=== PATIENT | male | born 1990 | race Caucasian/White ===

== ENCOUNTER → 2022-03-08 13:05 | Outpatient (BNVA) | payer MEDICAID, SELFPAY | PROVIDERS: Visit Provider Physician Assistant Surgical | DX: Z13.89 Encounter for screening for other disorder (principal) ==

== ENCOUNTER → 2022-03-23 10:30 | Outpatient (BNVA) | payer MEDICAID, SELFPAY | PROVIDERS: Visit Provider Physician Assistant | DX: Z01.818 Encounter for other preprocedural examination (principal); R03.0 Elevated blood-pressure reading, without diagnosis of hypertension; E66.01 Morbid (severe) obesity due to excess calories; F17.210 Nicotine dependence, cigarettes, uncomplicated; Z68.42 Body mass index [BMI] 45.0-49.9, adult | CPT/HCPCS: 99202 ==

== ENCOUNTER → 2022-04-04 10:51 | Outpatient (REF) | payer MEDICAID, SELFPAY ==
--- NOTE | ~2022-04-04 | XR_ITS ---
EXAMINATION: XR CHEST CLINICAL INFORMATION: Preprocedural examination. COMPARISON: None TECHNIQUE: 2 views of the chest were obtained. FINDINGS: The lungs are well expanded. There is no focal consolidation, edema, or effusion. No pneumothorax. The cardiomediastinal silhouette is within normal limits. No acute osseous abnormality. XR/XR chest 2V IMPRESSION: Clear lungs.
--- NOTE | 2022-04-04 11:00 | ECG_ITS ---
Test Reason : pre-op Blood Pressure : / mmHG Vent. Rate : 083 BPM Atrial Rate : 083 BPM P-R Int : 196 ms QRS Dur : 090 ms QT Int : 380 ms P-R-T Axes : 050 028 039 degrees QTc Int : 446 ms Normal sinus rhythm Normal ECG No previous ECGs available Referred By: Sandra Evangelista Electronically Signed By:ELIS BARBER
[2022-04-04 11:28] LABS: MANUAL DIFF FLAG NO
[2022-04-04 11:59] LABS: Basophils Absolute Auto 0.1 X10*3/uL (0.0-0.2); Basophils Percent Auto 0.6 % (0-2); Eosinophils Absolute Auto 0.3 X10*3/uL (0.0-0.4); Eosinophils Percent Auto 2.8 % (0-4); Hematocrit 44.4 % (42.0-52.0); Hemoglobin 14.4 g/dl (14.0-18.0); Imm Gran Abs Auto 0.05 X10*3/uL (0.00-0.03); Imm Gran Pct Auto 0.5 % (0.0-0.4); Lymphocytes Absolute Auto 2.8 X10*3/uL (1.2-4.9); Lymphocytes Percent Auto 26.1 % (20-40); Mean Corpuscular HGB Conc 32.4 g/dl (31.0-36.0); Mean Corpuscular Hemoglobin 23.1 pg (27.0-33.0); Mean Corpuscular Volume 71.3 fL (80.0-98.0); Mean Platelet Volume 8.7 fL (9.4-12.4); Monocytes Absolute Auto 0.6 X10*3/uL (0.1-1.2); Monocytes Percent Auto 5.2 % (2-11); Neutrophils Absolute Auto 6.8 x10*3/uL (2.0-8.3); Neutrophils Percent Auto 64.8 % (45-73); Platelet Count 269 X10*3/uL (160-400); Red Blood Count 6.23 X10*6/uL (4.60-5.80); White Blood Count 10.5 X10*3/uL (4.8-10.8)
[2022-04-04 12:15] LABS: Estimated Average Glucose 108 mg/dL; Hemoglobin A1c % 5.4 %
[2022-04-04 12:56] LABS: Alanine Aminotransferase 34 U/L (0-40); Albumin Level 4.6 g/dL (3.5-5.0); Alkaline Phosphatase 97 U/L (39-117); Anion Gap 12 (12-20); Aspartate Amino Transferase 18 U/L (5-37); Bilirubin Total 0.8 mg/dL (0.0-1.0); Blood Urea Nitrogen 12 mg/dL (9-16); C Reactive Protein 1.17 mg/dL (< or = 0.50); Calcium 9.6 mg/dL (8.4-10.2); Carbon Dioxide 26 mmol/L (22-29); Chloride 106 mmol/L (96-108); Cholesterol 209 mg/dL; Estimated Glomerular Filt Rate > 60; Glucose Random 84 mg/dL (60-115); HDL Cholesterol 24 mg/dL; Iron 59 mcg/dL (45-160); LDL Cholesterol Calculated 127 mg/dl; Percent Iron Saturation 20 % (15-50); Potassium 4.1 mmol/L (3.3-5.1); Sodium 140 mmol/L (135-145); Total Iron Binding Capacity 292 mcg/dL (228-428); Total Protein 7.5 g/dL (6.5-8.0); Triglycerides 291 mg/dL; Unsaturated Iron Binding 233 ug/dL
[2022-04-04 13:13] LABS: Ferritin 146 ng/mL (20-250); Folate 13.5 ng/mL (> or = 4.0); Insulin 20 uU/mL (2-29); TSH reflex Free T4 1.49 uIU/mL (0.32-4.0); Vitamin B12 424 pg/mL (200-900); Vitamin D 25-OH Total 24.4 ng/mL (>30)
[2022-04-06 13:19] LABS: Calcium (PTHI) 9.8 mg/dL (8.6-10.3); PTHI 43 pg/mL (16-77)
[2022-04-09 15:09] LABS: Vitamin B1 10 nmol/L (8-30)
[2022-04-10 00:43] LABS: Zinc 78 mcg/dL (60-130)
[2022-04-10 05:48] LABS: Vitamin A 93 mcg/dL (38-98)
== END ==
LOC: HO.CARD 10:51
PROVIDERS: Visit Provider Physician Assistant
DX: Z01.818 Encounter for other preprocedural examination (principal); E66.01 Morbid (severe) obesity due to excess calories; R03.0 Elevated blood-pressure reading, without diagnosis of hypertension; A04.8 Other specified bacterial intestinal infections
CPT/HCPCS: 36415; 71046; 80053; 80061; 82306; 82607; 82728; 82746; 83013; 83036; 83525; 83540; 83970; 84425; 84443; 84590; 84630; 85025; 86140; 93005; 99211

== ENCOUNTER 2022-04-04 18:38 | Outpatient (REF) | payer MEDICAID, SELFPAY ==
[2022-04-07 10:47] LABS: H Pylori Breath Test Negative (Negative)
== END 2022-04-04 18:39 | disposition home or self-care (01) ==
LOC: HO.LNP 18:38
PROVIDERS: Visit Provider Physician Assistant
DX: Z01.818 Encounter for other preprocedural examination (principal); E66.01 Morbid (severe) obesity due to excess calories; R03.0 Elevated blood-pressure reading, without diagnosis of hypertension
CPT/HCPCS: 83013

== ENCOUNTER → 2022-04-13 11:00 | Outpatient (BNVA) | payer MEDICAID, SELFPAY | PROVIDERS: PCP Physician Assistant Medical; Visit Provider Physician Assistant | DX: Z13.89 Encounter for screening for other disorder (principal) ==

== ENCOUNTER → 2022-05-04 11:00 | Outpatient (BNVA) | payer MEDICAID, SELFPAY | PROVIDERS: PCP Physician Assistant Medical; Visit Provider Dietitian, Registered | DX: Z01.818 Encounter for other preprocedural examination (principal); R03.0 Elevated blood-pressure reading, without diagnosis of hypertension; E66.01 Morbid (severe) obesity due to excess calories; Z68.42 Body mass index [BMI] 45.0-49.9, adult | CPT/HCPCS: 97802 ==

== ENCOUNTER → 2022-05-07 13:15 | Outpatient (BNVA) | payer OTHER, MEDICAID, SELFPAY | PROVIDERS: PCP Physician Assistant Medical; Visit Provider Counselor Mental Health ==

== ENCOUNTER 2022-05-09 08:46 | Outpatient (REF) | payer MEDICAID, SELFPAY ==
--- NOTE | ~2022-05-09 | US_ITS ---
EXAMINATION: US COMPLETE ABDOMEN WITH LIVER ELASTOGRAPHY CLINICAL INFORMATION: Obesity COMPARISON: None available. TECHNIQUE: Real-time imaging of the abdominal viscera. Noninvasive ultrasound liver fibrosis assessment is performed using Griselda ElastPQ point quantification shear wave elastography (2D-SWE) with a C5-2 MHz transducer. Multiple elastography samples are obtained. FINDINGS: PANCREAS: Normal. The visualized pancreatic head and body are normal in appearance. The remainder of the pancreas is obscured from visualization by the overlying bowel gas. ABDOMINAL AORTA: The proximal, middle, and distal aortic segments are normal in caliber. INFERIOR VENA CAVA: Visualized portions are normal. LIVER: The liver demonstrates enlarged in size, normal contour and increased echogenicity. No focal lesion or intrahepatic biliary duct dilatation. The right lobe measures 20.7 cm in length. The left lobe measures 15.6 cm in length. Portal flow is hepatopedal Shear wave liver elastography median stiffness is 1.64 m/s (reference: normal median stiffness is 1.3 m/s or less). IQR/median stiffness to assess sampling precision is 0.10 (reference: good quality data set is IQR/median stiffness of 0.15 or less). GALLBLADDER: There is a phrygian cap visualized.. The gallbladder is physiologically distended without evidence of stones, sludge, polyps, wall thickening or pericholecystic fluid. COMMON BILE DUCT: Normal in caliber measuring 0.36 cm in diameter. RIGHT KIDNEY: Normal. No hydronephrosis. No renal calculi or focal parenchymal lesions. The kidney measures 13.2 cm in maximum dimension. LEFT KIDNEY: Normal. No hydronephrosis. No renal calculi or focal parenchymal lesions. The kidney measures 13.0 cm in maximum dimension. SPLEEN: Normal. The spleen measures 14.6 cm in maximum dimension. FREE FLUID: None. US/US abdomen comp w elastography IMPRESSION: 1. Hepatic steatosis with hepatomegaly. No focal lesion. Rest of the abdominal ultrasound is unremarkable. 2. Liver elastography: Median liver stiffness measures 1.64m/s corresponds to cACLD (ruled out ), REFERENCE: Society of Radiologists in Ultrasound Liver Stiffness Thresholds (2019): LIVER STIFFNESS THRESHOLDS: *Liver Stiffness equal or less than 1.3 m/s: High probability of being normal. *Liver Stiffness less than 1.7 m/s: In the absence of other known clinical signs, rules out compensated advanced chronic liver disease. *Liver Stiffness 1.7-2.1 m/s: Suggestive of compensated advanced chronic liver disease but need further test for confirmation. *Liver Stiffness over 2.1 m/s: Rules in compensated advanced chronic liver disease. *Liver Stiffness over 2.4 m/s: Suggestive of clinically significant portal hypertension. QUALITY OF DATA SET: *IQR/Median value equal or less than 0.15 implies a quality data set. *IQR/Median value over 0.15 implies a poor quality data set. SIGNIFICANT CHANGE FROM PRIOR EXAM: Significant change if liver stiffness measurement is 10% or greater from prior exam. OTHER CONSIDERATIONS: The stage of liver fibrosis may be overestimated in the setting of acute hepatitis, liver inflammation, elevated liver function tests, hepatic vascular congestion, obstructive cholestasis, non-fasting state, and infiltrative diseases such as amyloidosis and lymphoma. In some patients with NAFLD, the liver stiffness thresholds for compensated advanced chronic liver disease may be lower. In causes other than viral hepatitis and NAFLD, liver stiffness thresholds are not well established.
--- NOTE | ~2022-05-09 | FL_ITS ---
EXAMINATION: FL UPPER GI SERIES CLINICAL INFORMATION: Bariatric service evaluation. Z01.818 - Encounter for other preprocedural examination COMPARISON: None TECHNIQUE: Upper GI series is performed using fluoroscopic evaluation in addition to multiple fluoroscopic spot views. The patient is imaged both upright and prone and using both thick and thin barium sulfate along with effervescent granules. Fluoroscopy time: 1.3 minutes DAP: 34.07 Gycm2 Fluoroscopic spot images: 17 FINDINGS: There is normal esophageal motility. There is no obstruction, stricture, ulceration, or hernia. There is gastroesophageal reflux during the water siphon test to the mid thoracic esophagus. The stomach shows no thickened folds or ulcer crater or outlet obstruction. The duodenal bulb is pliable and without ulcer crater or scarring. The post bulbar duodenum the jejunal mucosal pattern are unremarkable. There is a tiny duodenal diverticulum medial descending duodenum. FL/FL upper GI w air IMPRESSION: -Gastroesophageal reflux during water siphon test to mid thoracic esophagus. -No esophageal ulceration or stricture. No hiatal hernia. -Stomach unremarkable. Incidental tiny duodenal diverticulum.
== END 2022-05-09 08:47 | disposition home or self-care (01) ==
LOC: HO.US 08:46
PROVIDERS: PCP Physician Assistant Medical; Visit Provider Physician Assistant
DX: Z01.818 Encounter for other preprocedural examination (principal); E66.01 Morbid (severe) obesity due to excess calories; R03.0 Elevated blood-pressure reading, without diagnosis of hypertension
CPT/HCPCS: 74246; 76705; 76981

== ENCOUNTER → 2022-05-29 10:30 | Outpatient (BNVA) | payer OTHER, MEDICAID, SELFPAY | PROVIDERS: PCP Physician Assistant Medical; Visit Provider Counselor Mental Health | DX: F43.23 Adjustment disorder with mixed anxiety and depressed mood (principal) ==

== ENCOUNTER → 2022-06-07 16:59 | Outpatient (BNVA) | payer MEDICAID, SELFPAY | PROVIDERS: PCP Physician Assistant Medical; Visit Provider Physician Assistant | DX: E66.01 Morbid (severe) obesity due to excess calories (principal); K76.0 Fatty (change of) liver, not elsewhere classified; R16.0 Hepatomegaly, not elsewhere classified ==

== ENCOUNTER → 2022-06-12 10:30 | Outpatient (BNVA) | payer OTHER, MEDICAID, SELFPAY | PROVIDERS: PCP Physician Assistant Medical; Visit Provider Counselor Mental Health | DX: F43.23 Adjustment disorder with mixed anxiety and depressed mood (principal) ==

== ENCOUNTER → 2022-06-18 13:17 | Outpatient (BNVA) | payer OTHER, SELFPAY | PROVIDERS: PCP Physician Assistant Medical; Visit Provider Dietitian, Registered | DX: E66.01 Morbid (severe) obesity due to excess calories (principal); Z68.42 Body mass index [BMI] 45.0-49.9, adult; Z71.3 Dietary counseling and surveillance | CPT/HCPCS: 97803 ==

== ENCOUNTER → 2022-07-03 10:00 | Outpatient (BNVA) | payer OTHER, MEDICAID, SELFPAY | PROVIDERS: PCP Physician Assistant Medical; Visit Provider Counselor Mental Health | DX: F43.23 Adjustment disorder with mixed anxiety and depressed mood (principal) ==

== ENCOUNTER → 2022-07-03 10:00 | Outpatient (BNVA) | payer OTHER, MEDICAID, SELFPAY | PROVIDERS: PCP Physician Assistant Medical; Visit Provider Counselor Mental Health | DX: F43.23 Adjustment disorder with mixed anxiety and depressed mood (principal) ==

== ENCOUNTER → 2022-07-05 08:30 | Outpatient (BNVA) | payer OTHER, MEDICAID, SELFPAY | PROVIDERS: PCP Physician Assistant Medical; Visit Provider Physician Assistant ==

== ENCOUNTER 2023-06-03 08:42 | Outpatient (AMB) | payer OTHER, SELFPAY ==
[2023-06-03 22:55] VITALS: BMI 50.6
--- NOTE | 2023-06-03 22:55 | MHC.OFFVISWM ---
VS Expanded 06/03/23 22:55 Height 6 ft Weight 373 lb BMI 50.6 Body Fat % 58.2 Body Fat Mass 217 Fat Free Mass 156 Visceral Fat Rating 30 Body Water % 330.2 Body Water Mass 112.6 Basal Metabolic Rate/Score 1,907 Intake Visit Reasons: TV Re-Est SWL Allergies acetaminophen [From Vicodin] Adverse Reaction (Intermediate, Verified 06/03/23 22:57) Rash hydrocodone [From Vicodin] Adverse Reaction (Intermediate, Verified 03/23/22 10:39) Rash Medication List - Last Reconciled 06/03/23 by Milton Elaine MD cholecalciferol (vitamin D3) 25 mcg PO DAILY multivitamin 1 tab PO DAILY HPI HPI TV Re-Est SWL: Details: Start time: 3.30pm, End time: 3.50pm ?I spent 15 minutes speaking with the patient on the phone plus an additional 5 minutes reviewing and updating records for a total of 20 minutes HPI Comments Details: Patient is re-establishing care Had to discontinue the program last year because his passed Has lost 5lbs already with our nutritional and exercise plan [facility] Medical History (Updated 06/03/23 @ 22:59 by Milton Elaine MD) GERD (gastroesophageal reflux disease) Surgical History History of tonsillectomy and adenoidectomy Family History Mother No problems noted. 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 Plan for lap sleeve gastrectomy. If diaphragmatic or ventral hernias are present at time of surgery, these will be repaired laparoscopically as well. 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 I emphasized the importance of close follow-up, adherence to instructions and good communication. 2. To be scheduled for EGD due to history of GERD. The possibility of biopsies was discussed. Patient needs to avoid use of NSAIDs and aspirin for 1 week prior to EGD. Risks of perforation and? bleeding was discussed with the patient. This will be an outpatient procedure with IV sedation. 3. Continue present nutritional plan 4. Send me weight measurements weekly on Saturdays
== END 2023-06-03 23:03 | disposition home or self-care (01) ==
PROVIDERS: PCP Physician Assistant Medical; Visit Provider Surgery
DX: E66.01 Morbid (severe) obesity due to excess calories (principal)
CPT/HCPCS: 99213

== ENCOUNTER → 2023-06-03 08:42 | Outpatient (BNVA) | payer MEDICAID, SELFPAY | PROVIDERS: PCP Physician Assistant Medical; Visit Provider Surgery ==

== ENCOUNTER 2023-06-11 09:16 | Outpatient (AMB) | payer OTHER, SELFPAY ==
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
== END 2023-06-11 09:47 | disposition home or self-care (01) ==
LOC: HO.HBST 09:16
PROVIDERS: PCP Physician Assistant Medical; Visit Provider Counselor Mental Health
DX: F90.1 Attention-deficit hyperactivity disorder, predominantly hyperactive type (principal); E66.01 Morbid (severe) obesity due to excess calories
CPT/HCPCS: 90791

== ENCOUNTER → 2023-06-11 09:16 | Outpatient (BNVA) | payer OTHER, SELFPAY | PROVIDERS: PCP Physician Assistant Medical; Visit Provider Counselor Mental Health ==

== ENCOUNTER 2023-06-19 09:09 | Day surgery (SDC) | payer OTHER, SELFPAY ==
--- NOTE | 2023-06-17 14:49 | HO.ANESPROP2 ---
Documented by User: Malinda Wyman NP 06/17/23 14:49 HPI - Anesthesia Eval Consult details Narrative: 33yo M for Upper Endoscopy PMFSH Active Problems Active Problems: All Active Problems ADHD (attention deficit hyperactivity disorder), predominantly hyperactive impulsive type (Acute) GERD (gastroesophageal reflux disease) (Acute) Hepatomegaly (Acute) Steatosis, liver (Acute) Adjustment reaction with anxiety and depression (Acute) Pre-op evaluation (Acute) Elevated BP without diagnosis of hypertension (Acute) Morbid obesity (Acute) Past Medical History Medical History GERD (gastroesophageal reflux disease) Family History Family History Mother No problems noted. 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 Meds Allergies Allergy/AdvReac Type Severity Reaction Status Date / Time acetaminophen [From Vicodin] AdvReac Intermediate Rash Verified 06/03/23 22:57 hydrocodone [From Vicodin] AdvReac Intermediate Rash Verified 03/23/22 10:39 Home Medications ?Medication ?Instructions ?Recorded ?Confirmed ?Last Taken ?Type multivitamin 1 tab PO DAILY 03/08/22 06/03/23 Unknown History Assessment and Plan Assessment Anesthesia Assessment: Chart Reviewed Documented by User: Sangita Bah MD 06/19/23 09:43 PMFSH Past Medical History Medical History GERD (gastroesophageal reflux disease) Family History Family History Mother No problems noted. 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 Allergies Allergy/AdvReac Type Severity Reaction Status Date / Time acetaminophen [From Vicodin] AdvReac Intermediate Rash Verified 06/03/23 22:57 hydrocodone [From Vicodin] AdvReac Intermediate Rash Verified 03/23/22 10:39 Home Medications ?Medication ?Instructions ?Recorded ?Confirmed ?Last Taken ?Type multivitamin 1 tab PO DAILY 03/08/22 06/03/23 Unknown History Exam Airway Mallampati Class: III TM Dist: >3cm Neck ROM: Full Loose/Missing/Broken Teeth: No Heart: RRR Lungs: CTA Assessment and Plan Assessment Anesthesia Assessment: Anesthesia Plan Discussed Final Anesthetic Review History of Problems with Anesthesia: No NPO: Yes ASA Class: III Final Preanesthetic Review: Meds/Allgs Chart Reviewed, Consent Obtained/Reviewed and Anes Risks/Benef Reviewed Patient Risk: Intermediate Procedure Risk: Intermediate Anesthetic Plan Anesthetic Plan: MAC: Disposition: Standard PACU
[2023-06-19 09:12] VITALS: BMI 49.5
--- NOTE | 2023-06-19 09:19 | P.BOP_ITS ---
Brief Operative Note Date of Service: 06/19/23 Pre-op diagnosis: GERD Post-op diagnosis: same Procedure: PROCEDURE DATE: 06/19/2023 PREOPERATIVE DIAGNOSIS: GERD POSTOPERATIVE DIAGNOSIS: ?Same as above. 1) normal endoscopy PROCEDURE: [id number] with biopsies Surgeon: Radha Elaine M.D.. Ph.D. Product Support Representative: None ? Anesthesia: IV sedation Estimated blood loss: ?Minimal FINDINGS AND PROCEDURE: ? OPERATIVE INDICATIONS: ?The patient is a 33 year old male known to me who is interested in bariatric surgery. The patient has GERD. Based on this information I recommended an upper endoscopy to evaluate the patient's symptoms. Risks and complications of the surgery were discussed with the patient in advance particularly the possibility of perforation or bleeding that may require surgical intervention. The patient understood the risks and was in agreement with the plan. ? PROCEDURE: After informed consent was obtained by the patient, the patient was ?transferred to the Operating Room and was placed in the supine position.? After successful induction of IV sedation, a mouth block was inserted and the patient was placed in the left lateral decubitus position. An upper endoscopy was performed next, the oropharynx and esophagus appeared within the normal limits. There was no hiatal hernia. The z-line was smooth. Two biopsies were obtained from the distal esophagus 2-3 cm proximal to the GE junction and two additional biopsies from the GE junction. The stomach was entered and it appeared to be of normal size. There was no gastritis. There was no stricture or ulcer. A biopsy was obtained from the gastric fundus and antrum. No significant bleeding was noted from any of the biopsy sites. The scope was then advanced into the duodenum which appeared to be normal as well. Retrofl exion of the scope revealed a normal GE junction. At that point the duodenum ?and the stomach were decompressed and the scope was withdrawn from the patient's mouth. The patient extubated and was transferred in stable condition to the Recovery Room for further care. I was present and performed all steps of the procedure. There were no residents to assist with this case. Temo Elaine M.D., Ph.D. Surgeon: Milton Elaine MD Was an Product Support Representative used for this Procedure?: No Estimated blood loss (mL): 0 IV fluids (mL): 400 Urine output (mL): 0 (No Beasley to record output) Pathology: other (1) antrum x1, 2) fundus x1, 3) GE junction x2, 4) distal esophagus x2) Condition: stable Disposition: PACU
--- NOTE | 2023-06-19 09:19 | MHC.SHP ---
Pre-Procedural Eval Section A - 24 Hr Update-Section A only Date of Service: 06/19/23 The patient is an INPATIENT: No The patient has been examined within 24 hours of the surgical procedure. The History & Physical has been completed within 30 days and I have reviewed it.: No Section B - Complete if H&P > 30 days Chief Complaint: Gastro-esophageal reflux disease without esophagit Details of Present Illness: GERD Relevant Family History (Specify if Yes): No Relevant Social History: None Present Medications: None Medical History: No relevant PMH History of Previous Operations: No relevant previous surgery Allergies: Allergies Allergy/AdvReac Type Severity Reaction Status Date / Time acetaminophen [From Vicodin] AdvReac Intermediate Rash Verified 06/03/23 22:57 hydrocodone [From Vicodin] AdvReac Intermediate Rash Verified 03/23/22 10:39 Review of Systems Sugical H&P ROS: Negative: Constitution, Cardiovascular, Respiratory, Neurological, Psychiatric, Hem-Onc, Allergic/Immunologic, Gastrointestinal, Genitourinary, Musculoskeletal, Integumentary, Endocrine and Eyes/Ears/Nose/Throat Exam Surgical H&P Exam: Normal: HEENT, Normal: Heart, Normal: Lungs, Normal: Extremities, Normal: Abdomen, Normal: Skin and Normal: Neurological Plan Diagnosis/Plan: Unchanged (EGD to assess etiology of GERD. Risks of bleeding and perforation were discussed with the patient and he is in agreement with the plan.) I have reviewed the history and physical and performed a pertinent physical examination on my patient. No changes have occurred unless specified. Time Spent With Patient Time: Total time managing care of this patient today ____ minutes.
[2023-06-19 09:35] VITALS: BP 155/85; PULSE 77; RESP 16; TEMP 36.1; O2SAT 95
[2023-06-19] MEDS: Lactated Ringers 1,000 ML 80 ML IVCONT (09:37)
[2023-06-19 10:20] VITALS: BP 119/80; PULSE 93; RESP 12; TEMP 36.7; O2SAT 92
[2023-06-19 10:55] VITALS: BP 117/72; PULSE 82; RESP 17; TEMP 36.7; O2SAT 94
== END 2023-06-19 11:14 | disposition home or self-care (01) ==
PROVIDERS: PCP Physician Assistant Medical; Visit Provider Surgery
PROC: 0DJ08ZZ Inspection of Upper Intestinal Tract, Via Natural or Artificial Opening Endoscopic (ICD-10-PCS; CPT 43235; principal; 2023-06-19 10:50)
DX: K21.00 Gastro-esophageal reflux disease with esophagitis, without bleeding (principal); E66.01 Morbid (severe) obesity due to excess calories; Z68.43 Body mass index [BMI] 50.0-59.9, adult
CPT/HCPCS: 43239; 88305; 88312; 88313; 88342; J1596; J2250; J2704

== ENCOUNTER → 2023-06-19 09:09 | Outpatient (BNV) | payer OTHER, SELFPAY | PROVIDERS: PCP Physician Assistant Medical; Visit Provider Surgery | DX: K21.9 Gastro-esophageal reflux disease without esophagitis (principal) | CPT/HCPCS: 43239 ==

== ENCOUNTER 2023-07-03 14:37 | Outpatient (AMB) | payer OTHER, SELFPAY ==
[2023-07-03 14:30] VITALS: BMI 48.7
--- NOTE | 2023-07-03 14:30 | MHC.OFFVISWM ---
VS Expanded 07/03/23 14:30 Height 6 ft Weight 359 lb 3.2 oz BMI 48.7 Body Fat % 55.3 Body Fat Mass 198.6 Fat Free Mass 160.6 Visceral Fat Rating 30 Body Water % 32.3 Body Water Mass 116 Muscle Mass/Score 152.6 Basal Metabolic Rate/Score 1,920 Intake Visit Reasons: (TV) F/U SWL () Allergies acetaminophen [From Vicodin] Adverse Reaction (Intermediate, Verified 06/03/23 22:57) Rash hydrocodone [From Vicodin] Adverse Reaction (Intermediate, Verified 03/23/22 10:39) Rash HPI Comments Details: Patient is a pleasant 33-year-old male who returns to the clinic today in follow-up. He is pursuing preoperative care for surgical weight loss with planned laparoscopic sleeve gastrectomy in the future. Weight today is 359.2 lb with a BMI of 48.7. Has lost 5.8 lb since being seen on 06/19/2023. His initial weight on 06/03/23 with a weight of 373 pounds. He has lost 13.8 pounds since re-starting 06/03/23 or 3.6 % TBWL. He states things are going well. He is using the right bmi durga, didn't tolerate bar. He states he has been communicating with Dr Pop his weight every saturday. 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 [facility] Medical History GERD (gastroesophageal reflux disease) Surgical History History of tonsillectomy and adenoidectomy Family History Mother No problems noted. 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 Telehealth Telehealth Telehealth Platform: Telephone Location of provider rendering services: practice address Location of patient: address on file Patient Identification confirmed using: Name, : Yes Telehealth method: voice only Patient verbally consented to treatment: Yes Patient verbally consented to billing insurance company: Yes Patient informed of any privacy concerns related to visit: Yes Minutes spent on Phone/Video with Pt.: 20 Assessment & Plan Assessment & Plan (1) Morbid obesity: Code(s): E66.01 - Morbid (severe) obesity due to excess calories Category: Medical Plan: Encouraged to go through the right BMI durga again with his current weight. He previously went through the durga using just shakes and bars but has not like the bars and has not been measuring his food by forceful. Suggested monitoring by for full, avoiding rice. Additionally, initiate tracking calories while at the gym and increase time at the gym as he is able. 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 We will have him follow-up with Dr. Elaine for further preoperative planning.
== END 2023-07-03 14:57 | disposition home or self-care (01) ==
LOC: HO.HBS 14:37
PROVIDERS: PCP Physician Assistant Medical; Visit Provider Physician Assistant Surgical
DX: E66.01 Morbid (severe) obesity due to excess calories (principal)
CPT/HCPCS: 99213

== ENCOUNTER → 2023-07-03 14:37 | Outpatient (BNVA) | payer OTHER, SELFPAY | PROVIDERS: PCP Physician Assistant Medical; Visit Provider Physician Assistant Surgical ==

== ENCOUNTER 2023-08-19 10:40 | Outpatient (AMB) | payer OTHER, SELFPAY ==
--- NOTE | 2023-08-19 10:19 | A.OFFVIS_ITS ---
VS Expanded 08/19/23 10:22 Height 6 ft Weight 351 lb BMI 47.6 Intake Visit Reasons: TV SwL F/U (per DR Pop) Desk Manager Required: No Allergies acetaminophen [From Vicodin] Adverse Reaction (Intermediate, Verified 06/03/23 22:57) Rash hydrocodone [From Vicodin] Adverse Reaction (Intermediate, Verified 03/23/22 10:39) Rash Medication List - Last Reconciled 08/19/23 by ETIENNE العلي cholecalciferol (vitamin D3) 25 mcg PO DAILY multivitamin 1 tab PO DAILY pantoprazole 40 mg PO DAILY HPI Comments Details: Patient is a pleasant 33-year-old male who returns to the clinic today in follow-up. He is pursuing preoperative care for surgical weight loss with planned laparoscopic sleeve gastrectomy in the future. Weight today is 351 lb with a BMI of 48.7. His initial weight on 06/03/23 with a weight of 373 pounds. He has lost 22 pounds since re-starting 06/03/23 or 5.9 % TBWL. He states things are going well. He is using the right bmi durga, he states that he had a family emergency in [place] and due to a series of circumstances had difficulty following the meal plan exactly. He has since returned to [place] over the last 10-14 days and has resumed his plans. He also did not have his meds. He additionally was supposed to be having half of the ready to drink shake but had been having the whole thing. 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 Telehealth Telehealth Telehealth Platform: Telephone Location of provider rendering services: practice address Location of patient: address on file Patient Identification confirmed using: Name, : Yes Telehealth method: voice only Patient verbally consented to treatment: Yes Patient verbally consented to billing insurance company: Yes Patient informed of any privacy concerns related to visit: Yes Minutes spent on Phone/Video with Pt.: 15 Assessment & Plan Assessment & Plan (1) Morbid obesity: Code(s): E66.01 - Morbid (severe) obesity due to excess calories Category: Medical Plan: Discussed the importance of following the directions on the durga exactly. Discussed increasing calories burned at the gym. He is only able to access the gym 3 days per week due to work and family requirements. Because of this, we discussed the importance of increasing the calories burned at the gym. We also discussed the importance of measuring his food by the forks as he had not been doing this. We will arrange for a follow-up appointment in approximately 1 month with the understanding that he will call or text sooner if he has any questions. He was encouraged to text his weight weekly for continued updates and recommendations.
[2023-08-19 10:22] VITALS: BMI 47.6
== END 2023-08-19 10:47 | disposition home or self-care (01) ==
LOC: HO.HBS 10:40
PROVIDERS: PCP Physician Assistant Medical; Visit Provider Physician Assistant Surgical
DX: E66.01 Morbid (severe) obesity due to excess calories (principal)
CPT/HCPCS: 99213

== ENCOUNTER → 2023-08-19 10:40 | Outpatient (BNVA) | payer OTHER, SELFPAY | PROVIDERS: PCP Physician Assistant Medical; Visit Provider Physician Assistant Surgical ==